=== PATIENT | female | born 2000 | race African-American/Black ===

== ENCOUNTER 2019-07-08 13:04 | Emergency (ER) | payer MEDICAID ==
[~2019-07-08] VITALS: Ht 162.6 cm; Wt 97.0 kg
[2019-07-08] MEDS ORDERED: IBUPROFEN 600MG TABLET PO ONE (13:30)
[2019-07-08] MEDS ORDERED: AMOXICILLIN 500 MG CAPSULE PO ONE (13:30)
[2019-07-08] MEDS ORDERED: AMOXICILLIN/POTASSIUM CLAVULANATE 875/125MG TAB PO SCH (13:45)
[2019-07-08 13:48] VITALS: BP 123/83
== END 2019-07-08 13:48 | disposition home or self-care (01) ==
LOC: ER 13:12
DX: H66.90 Otitis media, unspecified, unspecified ear (principal)
CPT/HCPCS: 99283

== ENCOUNTER 2019-07-09 17:45 | Emergency (ER) | payer MEDICAID ==
[~2019-07-09] VITALS: Ht 167.6 cm; Wt 95.0 kg
[2019-07-09] MEDS ORDERED: IBUPROFEN 600MG TABLET PO ONE (19:30)
[2019-07-09 19:43] VITALS: BP 121/75
== END 2019-07-09 19:45 | disposition home or self-care (01) ==
LOC: ER 17:45
DX: H66.92 Otitis media, unspecified, left ear (principal); H92.12 Otorrhea, left ear
CPT/HCPCS: 99282

== ENCOUNTER 2019-12-28 12:45 | Emergency (ER) | payer MEDICAID ==
[~2019-12-28] VITALS: Ht 165.1 cm; Wt 65.0 kg
[2019-12-28 12:57] VITALS: BP 148/70
== END 2019-12-28 13:53 | disposition left against medical advice (07) ==
LOC: ER 12:45
DX: Z53.21 Procedure and treatment not carried out due to patient leaving prior to being seen by health care provider (principal)

== ENCOUNTER 2024-06-18 17:20 | Emergency (ER) | payer MEDICAID, OTHER ==
[~2024-06-18] VITALS: Ht 165.1 cm; Wt 80.0 kg
[2024-06-18 17:22] VITALS: O2SAT 98
[2024-06-18 19:51] LABS: BASOPHILS % 0.4 % (0.0-2.0); EOSINOPHILS % 0.8 % (0.0-5.0); HEMATOCRIT. 38.3 % (36.0-48.0); HEMOGLOBIN. 12.8 g/dL (12.0-16.0); LYMPHOCYTES % 32.8 % (20.0-50.0); MEAN CORPUSCULAR HEMOGLOBIN 30.9 pg (28.0-32.0); MEAN CORPUSCULAR HGB CONC 33.3 g/dL (31.0-37.0); MEAN CORPUSCULAR VOLUME 92.7 fL (81.0-99.0); MEAN PLATELET VOLUME 9.8 fl (7.4-10.4); MONOCYTES % 6.9 % (2.0-8.0); NEUTROPHILS % 59.1 % (40.0-76.0); PLATELET 222 x1000/uL (130-400); RED BLOOD CELL COUNT 4.13 mill/uL (4.2-5.4); RED CELL DISTRIBUTION WIDTH 14.1 % (11.6-14.6); WHITE BLOOD COUNT 5.7 x1000/uL (4.5-11.0)
[2024-06-18 19:56] LABS: CHLORIDE 106 mEq/L (98-107); POTASSIUM 3.5 mEq/L (3.5-5.1); SODIUM 136 mEq/L (136-145)
[2024-06-18 19:57] LABS: CALCIUM 9.5 mg/dL (8.7-10.4); CARBON DIOXIDE 22 mEq/L (21-32)
[2024-06-18 19:59] LABS: DIFFERENTIAL COMMENT 1
[2024-06-18 20:02] LABS: CREATININE 0.7 mg/dL (0.6-1.0); GLUCOSE 91 mg/dL (70-105); UREA NITROGEN BLOOD 6 mg/dL (9-23)
[2024-06-18 20:03] LABS: HCG SCREEN POSITIVE
[2024-06-18 20:20] LABS: B-HCG QUANTITATIVE 42468 mIU/mL (<3)
[2024-06-18 21:00] VITALS: BP 133/65; PULSE 74; RESP 16; TEMP 36.94740; O2SAT 99
== END 2024-06-18 21:49 | disposition home or self-care (01) ==
LOC: ER 17:20
DX: O20.0 Threatened abortion (principal); Z3A.13 13 weeks gestation of pregnancy
CPT/HCPCS: 36415; 76801; 80048; 84702; 84703; 85025; 86850; 86900; 99284